=== PATIENT | female | born 1985 | race African-American/Black ===

== ENCOUNTER 2019-06-13 13:13 | Emergency (ER) | payer BC, MEDICAID ==
[~2019-06-13] VITALS: Ht 154.9 cm; Wt 102.1 kg
--- NOTE | 2019-06-13 13:20 | Emergency Room Report ---
History of Present Illness General Chief Complaint: Lower Back Pain or Injury Source: Patient Present Illness Allergies: Coded Allergies: No Known Allergies (Unverified , 06/13/19) Patient History Last Menstrual Period: 05/09/19 Now: No Nursing Documentation-[facility] Past Medical History: No Stated History Physical Exam Vital Signs Date Time Temp Pulse Resp B/P (MAP) Pulse Ox O2 Delivery O2 Flow Rate FiO2 06/13/19 13:11 97.3 103 18 98/57 (71) 99 Room Air Medical Decision Making Last Vital Signs Date Time Temp Pulse Resp B/P (MAP) Pulse Ox O2 Delivery O2 Flow Rate FiO2 06/13/19 13:11 97.3 103 18 98/57 (71) 99 Room Air Puneet Jasso MD Jun 13, 2019 13:20
--- NOTE | 2019-06-13 14:10 | NUR ---
ED Nurse Note: Patient slipped on grape and fell onto the ground at [employer]. Patient has slippers on. c/o right knee and low back pain. Patient states 'I got splited' Swelling over the right knee noted. No bruise or redness on the low back noted. Patient able to wiggle right toes and reports no numbness or tingling in BLE. Reports no other injury or head injury. Applied ice back. Provided comfort measures.
--- NOTE | 2019-06-13 14:15 | NUR ---
ED Nurse Note: Patient awake, alert, oriented x 4. Regular, unlabored breathing with clear breath sounds in all lung lee noted.
[2019-06-13] MEDS ORDERED: IBUPROFEN600 MG ORAL (14:27)
[2019-06-13] MEDS ORDERED: ACETAMINOPHEN-1 EAC1 ORAL (14:27)
--- NOTE | 2019-06-13 14:27 | Emergency Room Report ---
History of Present Illness General Chief Complaint: Lower Back Pain or Injury Source: Patient Present Illness HPI 34-year-old female presents to the emergency department complaining of 8 out of 10 severity acute onset localized right anterior knee pain status post slip and fall 20 minutes prior to arrival. Patient describes a hyperextension injury. She reports pain with attempts to walk/weight-bear. Patient denies feeling of instability of the joint. Patient reports she saw her knee popped out and back into place. Denies skin color changes or temperature changes to the lower extremity. Denies hitting her head and she denies midline neck or back pain. Denies numbness tingling or loss of sensation or gross motor movements of the extremities, incontinence of bowel or bladder. Denies CP, Palpitations, LOC, AMS , dizziness, Changes in Vision, weakness or a sudden severe headache. Allergies: Coded Allergies: No Known Allergies (Unverified , 06/13/19) Patient History Past Medical History: see triage record Past Surgical History: none Pertinent Family History: none Last Menstrual Period: 05/09/19 Now: No Reviewed Nursing Documentation: PMH: Agreed; PSxH: Agreed Nursing Documentation-PMH Past Medical History: No Stated History Review of Systems All Other Systems: negative except mentioned in HPI Physical Exam Vital Signs Date Time Temp Pulse Resp B/P (MAP) Pulse Ox O2 Delivery O2 Flow Rate FiO2 06/13/19 13:11 97.3 103 18 98/57 (71) 99 Room Air Sp02 EP Interpretation: reviewed, normal General Appearance: no apparent distress, alert, GCS 15, non-toxic Head: normocephalic, atraumatic Eyes: bilateral eye normal inspection, bilateral eye PERRL ENT: hearing grossly normal, normal voice Neck: full range of motion Respiratory: lungs clear, normal breath sounds, speaking full sentences Cardiovascular #1: regular rate, rhythm, normal capillary refill Cardiovascular #2: 2+ dorsalis pedis (R), 2+ dorsalis pedis (L) Musculoskeletal: back normal, normal range of motion, gait/station normal - Compensatory gait favoring the right leg, tender - Right anterior medial knee, no increased laxity upon stress testing. Negative anterior and posterior drawer signs. No obvious visible deformity. Able to flex and extend with pain. , swelling - Anterior right knee Neurologic: alert, motor strength/tone normal, oriented x3, sensory intact, responsive, speech normal Psychiatric: judgement/insight normal Skin: normal color, normal inspection Medical Decision Making PA Attestation Dr. Jasso is my supervising Physician whom patient management has been discussed with. Diagnostic Impression: Primary Impression: Right knee sprain Qualified Codes: S83.411A - Sprain of medial collateral ligament of right knee , initial encounter ER Course Pt. presents to the ED c/o [ ] Ddx considered but are not limited to Fracture, dislocation, contusion, Sprain/ Strain/Spasm, circulatory compromise to name a few Vital signs: are WNL, pt. is afebrile H&PE are most consistent with musculoskeletal injury will perform imaging to r/ o fractures/dislocations. The patient has intact pulses distal to the right knee specifically right dorsalis pedis. ORDERS: - X-ray right knee 3 views- negative for fx, Dislocation, or significant soft tissue injury, per preliminary read in ED, and signed by DAVIAN Gonzalez, my supervising physician has reviewed, and agrees with my interpretation. ED INTERVENTIONS: - [facility] PO -Mir wrap applied the right knee by senior technical project manager. Pt. remains neurovascularly intact. -Patient is provided with crutches and instructed on their use -I do not identify an emergent condition at this time. With current presentation , pt. is stable for close outpatient follow up and conservative treatment. D/ w pt. to return promptly to ED with worsening or new symptoms.- Pt. verbalizes' understanding and agreement with proposed treatment plan.proposed treatment plan. DISCHARGE: At this time pt. is stable for d/c to home. Will provide printed patient care instructions, and any necessary prescriptions. Care plan and follow up instructions have been discussed with the patient prior to discharge. Other X-Ray Diagnostic Results Other X-Ray Diagnostic Results : X-Ray ordered: Right knee # of Views/Limited Vs Complete: 3 View Indication: Pain EP Interpretation: Yes DAVIAN Xray: Interpretation reviewed, by supervising MD, and agrees with findings. Interpretation: no dislocation, no soft tissue swelling, no fractures Impression: No acute disease Electronically Signed by: Jennifer Gonzalez PA-C Last Vital Signs Date Time Temp Pulse Resp B/P (MAP) Pulse Ox O2 Delivery O2 Flow Rate FiO2 06/13/19 13:11 97.3 103 18 98/57 (71) 99 Room Air Status: improved Disposition: HOME, SELF-CARE Condition: Stable Departure Forms: Return to Work Return to Work Date: Jun 16, 2019 Work Restrictions: None Return to Full Activity: Jun 16, 2019 Patient Instructions: Knee Sprain, [id number] Additional Instructions: Take medications as directed. Follow up with an [facility] in 3-5 days, even if your symptoms have resolved. If symptoms persist MRI may be required at the discretion of your PCP or Ortho Specialist. --Please review list of primary care clinics, if you do not already have a primary care provider who can give you an Orthopedic Referral. Return sooner to ED if new symptoms occur, or current symptoms become worse. Do not drink alcohol, drive, or operate heavy machinery while taking Tylenol # 3 as this may cause drowsiness. - Please note that this Emergency Department Report was dictated using [employer] sales [employer] technology software, occasionally this can lead to erroneous entry secondary to interpretation by the dictation equipment. Jennifer Gonzalez Jun 13, 2019 14:27
[2019-06-13] MEDS ORDERED: HYDROcodone/Acetamin 5/325 tab ORAL ONE (14:30)
--- NOTE | 2019-06-13 14:30 | NUR ---
ED Nurse Note: Patient reports decreaed pain. Patient using cell phone without facial grimacing or guarding.
--- NOTE | 2019-06-13 14:50 | NUR ---
ER DISCHARGE NOTE: Patient is cleared to be discharged per ERMD. D/C instruction given. Patient ambulated out with crutches and steady gait noted. Patient states she used crutches before. Written instruction provided. All questions were answered. Offered wheelchair to taxi, but patient states she is ok to use crutches.
[2019-06-13 14:54] VITALS: BP 123/69
--- NOTE | 2019-06-14 14:19 | Diagnostic Imaging Report ---
Indication: Right knee Pain 3 views of the right knee were obtained. Findings: No acute fracture, malalignment, or joint effusion are identified. There is narrowing of the medial compartment of the right knee. Impression: Negative for acute findings.
== END 2019-06-13 14:54 | disposition home or self-care (01) ==
LOC: EDBD 13:13 → EDSEX 13:13 → EMR 14:51
DX: S83.411A Sprain of medial collateral ligament of right knee, initial encounter (principal); W01.0XXA Fall on same level from slipping, tripping and stumbling without subsequent striking against object, initial encounter; Y92.9 Unspecified place or not applicable
CPT/HCPCS: 99283